=== PATIENT | male | born 1990 | race Caucasian/White ===

== ENCOUNTER 2022-06-25 16:22 | Emergency (ER) | payer OTHER ==
[~2022-06-25] VITALS: Ht 167.6 cm; Wt 83.9 kg
[2022-06-25] MEDS ORDERED: CIPR7.5D LEFT EAR (17:23)
--- NOTE | 2022-06-25 17:29 | NUR ---
Patient discharged to home in stable condition. Written and verbal after care instructions given. Patient verbalizes understanding of instructions. Stressed follow up or return to ER for worsening s/s.
[2022-06-25 18:28] VITALS: BP 126/77
== END 2022-06-25 18:29 | disposition home or self-care (01) ==
LOC: ER 16:22
DX: H60.92 Unspecified otitis externa, left ear (principal); Z88.1 Allergy status to other antibiotic agents
CPT/HCPCS: A4663